=== PATIENT | female | born 1965 | race Caucasian/White ===

== ENCOUNTER 2018-10-15 17:07 | Emergency (ER) | payer SELFPAY ==
[2018-10-15 17:08] VITALS: BP 127/77; PULSE 77; RESP 16; TEMP 36.4; O2SAT 96; BMI 44.2
--- NOTE | 2018-10-15 17:25 | CT_ITS ---
STUDY: CT ABDOMEN AND PELVIS WITH CONTRAST REASON FOR EXAM: Female, 53 years old. Right lower quadrant pain RADIATION DOSAGE (If Supplied By Facility): CTDIvol = ( 22.07 ) mGy, DLP = ( 1266.40 ) mGycm TECHNIQUE: Transaxial images were obtained from the dome of the diaphragm to the symphysis pubis without oral contrast. 100ML IV/Oral Isovue 300 was administered. Sagittal and coronal images were reconstructed. Individualized dose optimization techniques were used for this CT. COMPARISON: March 24, 2014 FINDINGS: The visualized lung bases are unremarkable. The visualized portions of the heart are within normal limits. Normal liver. Normal gallbladder and extrahepatic biliary system. Normal spleen. Normal pancreas. Normal bilateral adrenal glands. Normal right kidney. 1 cm cyst in the left kidney. Normal visualized stomach. Normal small intestine. Normal colon. The appendix is not visualized. Normal abdominal aorta. Normal inferior vena cava. Normal retroperitoneum. Normal urinary bladder. There is a stable 2.6 x 2 cm ill-defined density medial to the right common iliac bifurcation, image 83 series 2. Normal abdominal wall. Normal osseous structures. CT/Abdomen/Pelvis WITH Contrast IMPRESSION: No acute pathology or significant interval changes of the abdomen and pelvis. Stable ill-defined density medial to the right common iliac bifurcation similar to the previous study. Electronically Signed: Abran Reaves DO at 20:05 EDT Tel [phone], Service support ,
--- NOTE | 2018-10-15 17:29 | ED.VIS.GEN ---
History of Present Illness Chief Complaint: Abd Pain Informant: Patient Onset: Weeks Context: Sudden Onset Timing: Continuous Quality: Pain Location: Right lower quadrant Current Severity: Mild Maximum Severity: Moderate Worsened by: Movement and palpation Relieved by: Nothing Associated Symptoms: Nausea and anorexia Narrative: Patient is a 53-year-old woman status post hysterectomy who presents with right lower quadrant pain that she localizes in the proximity McBurney's point. She has combined of nausea and anorexia. She denies fever. She denies vomiting. She has had intermittent diarrhea for 1 week. She denies vaginal discharge or vaginal bleeding. She is status post hysterectomy. Prior similar symptoms: No Recent Illness/Hospitalization: No - Past Medical History (1) No significant past medical history Status: Acute Past Medical History - Allergies and Home Meds Allergies/Adverse Reactions: Allergies No Known Allergies Allergy (Verified 10/15/18 17:10) Primary Care Physician: Eloise Zamora PA [Primary Care Provider] - Prior records reviewed: Yes Surgical History: hysterectomy, - - Ureteral reconstructive surgery Lives: Spouse/ Significant Other Smoking Status: Never smoker Alcohol: None Drugs: None Review of Systems General: Denies: Chills, Fever, Sweats Eyes: Denies: Visual changes - bilaterally, Diplopia ENT: Denies: Rhinorrhea, Sore throat Cardiovascular: Denies: Chest pain, Palpitations Respiratory: Denies: Dyspnea, Cough, Dyspnea on exertion Gastrointestinal: Reports: Abdominal pain, Nausea. Denies: Vomiting, Diarrhea, Constipation, Melena, Hematochezia Genitourinary: Denies: Dysuria, Hematuria, Frequency Musculoskeletal: Denies: Myalgias, Arthralgias, Neck pain, Back pain, Extremity Pain Skin: Denies: Rash, Wounds Neurological: Denies: Headache, Weakness, Numbness Hematologic: Denies: Easy bruising, Easy bleeding Allergy: Denies: Uticaria, Swelling of the mouth Physical Exam Vital Signs/Narrative: Vital Signs Temp Pulse Resp BP Pulse Ox 10/15/18 17:08 97.5 F L 77 16 127/77 H 96 Inital Vital Signs reviewed: Yes General: Well nourished, Well developed, No Acute Distress Head: Normocephalic, Atraumatic Eyes: Perrl, EOMI. Negative for: Pale conjunctiva, Scleral icterus, - ENT: Moist mucous membranes, No rhinorrhea, TM's clear Neck: Supple, Nontender. Negative for: No lymphadenopathy, No JVD, - Cardiovascular: Regular rate, Regular rhythm, No murmurs, Normal S1, Normal S2 Respiratory: No distress, CTA bilaterally, Chest nontender Abdomen: Soft, Nondistended, Normal bowel sounds, No masses, Tender, Guarding, Hypoactive bowel sounds. Negative for: Rebound tenderness Back: Nontender, Normal Inspection Extremities: Nontender, No edema Skin: Normal color, No rash Neurological: Alert, Oriented x3, Cranial nerves II-XII grossly intact, Normal Strength, Normal Sensation Psychological: Normal affect, Normal Mood Diagnostic/Tx/Re-eval Impressions Abdomen/Pelvis CT 10/15/18 17:25 IMPRESSION: No acute pathology or significant interval changes of the abdomen and pelvis. Stable ill-defined density medial to the right common iliac bifurcation similar to the previous study. Electronically Signed: Abran Reaves DO at 20:05 EDT Tel [phone], Service support , 10/15/18 17:25 Abdomen/Pelvis WITH Contrast [CT] Stat Laboratory Results 10/15/18 10/15/18 17:44 17:44 WBC 7.4 RBC 4.31 Hgb 13.1 Hct 39.6 MCV 91.9 MCH 30.4 MCHC 33.1 RDW Std Deviation 41.9 RDW Coeff of Todd 12.4 Plt Count 286 MPV 10.3 Immature Gran % (Auto) 0.300 Neut % (Auto) 63.6 Lymph % (Auto) 24.7 [place] % (Auto) 9.5 Eos % (Auto) 1.4 Baso % (Auto) 0.5 Absolute Neuts (auto) 4.7 Absolute Lymphs (auto) 1.82 Nucleated RBC % 0 Sodium 140 Potassium 3.8 Chloride 108 H Carbon Dioxide 27.0 Anion Gap 5 BUN 11 Creatinine 0.86 Estim Creat Clear Calc 62.58 Est GFR (MDRD) Af Amer 89 Est GFR (MDRD) Non-Af 74 BUN/Creatinine Ratio 12.9 [address] is unchanged from prior. Since her work-up reveals no acute pathology with 1 week of pain will discharge to home with home-going instructions for abdominal pain of unknown etiology - Medical Decision Making With chief complaint of right lower quadrant pain with nausea and anorexia need to evaluate for appendicitis versus mesenteric adenitis versus adhesions. CT of the abdomen with p.o. and IV contrast as well as appropriate blood work was ordered. She was medicated with Zofran and morphine. Work-up was unremarkable. Because of abdominal pain is unknown. ED Disposition - Plan for ED Patient: Disposition: Home or Assisted Living Instructions: ABDOMINAL PAIN, Unknown Cause, (Female) Prescriptions: Dicyclomine HCl [Bentyl] 20 mg PO TIDAC #10 cap Prescription Printed Referrals: Eloies Zamora PA [Primary Care Provider] - 3-5 Days if not improving
[2018-10-15] MEDS: Ondansetron 4 MG/2 ML Vial IV (17:56)
[2018-10-15] MEDS: Morphine 4 MG/ML Syringe IV ×2 (17:56→19:49)
[2018-10-15 18:02] LABS: Absolute Lymphocyte Count 1.82 X10^3/uL (0.83-4.51); Absolute Neutrophil Count 4.7 X10^3/uL (2.0-7.7); Basophil# 0.04 X10^3/uL; Basophil% 0.5 % (0-1); Eosinophils% 1.4 % (0-5); Hematocrit 39.6 % (37-47); Hemoglobin 13.1 g/dL (12.0-15.0); Lymphocyte # 1.82 X10^3/ul (4.0); Lymphocyte % 24.7 % (19-41); Mean Corp Hgb Conc 33.1 g/dL (32-36); Mean Corpuscular Hgb 30.4 pg (27.0-32.0); Mean Corpuscular Volume 91.9 fL (81-99); Mean Platelet Vol. 10.3 fl (6.2-12.0); Monocyte% 9.5 % (0-10); NRBC Flagged by Analyzer 0 % (0-5); Neutrophil # 4.69 X10^3/uL (2.7-7.7); Neutrophil % 63.6 % (47-70); Platelet Count 286 K/mm3 (150-450); RBC Distribution Width CV 12.4 % (11.6-14.6); RBC Distribution Width SD 41.9 fl (35.1-43.9); Red Blood Count 4.31 M/mm3 (4.2-5.4); White Blood Count 7.4 K/mm3 (4.4-11.0)
[2018-10-15 18:08] LABS: Anion Gap 5 (5-15); BUN 11 mg/dL (7-18); BUN/Creat Ratio 12.9 RATIO (10-20); Calcium,Total 8.9 mg/dL (8.5-10.1); Chloride 108 mmol/L (98-107); Creatinine, Serum 0.86 mg/dL (0.55-1.02); EST Glomerular Filtration Rate 74 mL/min (>60); Est Glom Filt Rate - Afr Amer 89 mL/min (>60); Estimated Creatinine Clearance 62.58 ml/min; Glucose 93 mg/dL (74-106); Potassium 3.8 mmol/L (3.5-5.1); Sodium Level 140 mmol/L (136-145)
[2018-10-15 19:48] VITALS: RESP 17
[2018-10-15 20:41] VITALS: BP 133/51; PULSE 59; RESP 18; O2SAT 95
== END 2018-10-15 20:42 | disposition home or self-care (01) ==
PROVIDERS: Emergency Provider Emergency Medicine; Family Provider Physician Assistant; PCP Physician Assistant
DX: R10.31 Right lower quadrant pain (principal); R11.0 Nausea; R63.8 Other symptoms and signs concerning food and fluid intake; R19.7 Diarrhea, unspecified; Z90.710 Acquired absence of both cervix and uterus
CPT/HCPCS: 74177; 80048; 85025; 96374; 96375; 96376; 99283; J7050; Q9967; A4216; J2405

== ENCOUNTER 2018-10-28 12:55 | Observation (INO) | payer SELFPAY ==
[2018-10-26 08:48] VITALS: BMI 46.1
[2018-10-28] VITALS (9 sets, daily range): BP systolic 99–133; BP diastolic 51–89; PULSE 61–70; RESP 16; TEMP 36.2–37.2; O2SAT 92–98; BMI 46.0
--- NOTE | 2018-10-28 10:12 | EKG12_ITS ---
Test Reason : PREOP Blood Pressure : / mmHG Vent. Rate : 065 BPM Atrial Rate : 065 BPM P-R Int : 148 ms QRS Dur : 096 ms QT Int : 406 ms P-R-T Axes : -01 -05 018 degrees QTc Int : 422 ms Normal sinus rhythm Normal ECG When compared with ECG of 25-DEC-2001 15:08, Vent. rate has decreased BY 35 BPM Confirmed by ANA HAYES, KELLY ([id number]), editor department YULIA GARCIA ([id number]) on 11/02/2018 1:38:54 PM Referred By: Edward Patel Confirmed By:KELLY PEERZ MD
--- NOTE | 2018-10-28 10:45 | PCM.HP.BLA ---
History and Physical Date of Admission: 10/28/18 Intake Vital Signs 10/26/18 Height 5 ft 3 in 10/26/18 Weight: 260 lb 9 oz 10/26/18 Body Mass Index (BMI) 46.1 10/26/18 Blood Pressure 156/90 H 10/26/18 Blood Pressure Location Rt brachial 10/26/18 Respiratory Rate 22 H 10/26/18 Pulse Rate 76 10/26/18 Pulse Ox 97 10/23/18 Body Mass Index (BMI) 44.2 Intake Visit Reasons: Dyskinetic Gallbladder [facility] US 10/20, [place] 10/22 Chief Complaint: RUQ pain Asset Protection Associate Required: No Is patient in pain?: Yes Allergies No Known Allergies Allergy (Verified 10/26/18 08:48) Medications Amlodipine [Norvasc] 10 mg PO DAILY 03/24/14 [History Confirmed 10/26/18] Multivitamins,Therapeutic [Multivitamin] 1 tab PO DAILY 03/24/14 [History Confirmed 10/26/18] Lorazepam [Ativan] 1 mg PO PRN PRN 10/15/18 [History Confirmed 10/26/18] Zolpidem Tartrate [Ambien] 5 mg PO QHS PRN 10/15/18 [History Confirmed 10/26/18] escitalopram 10 mg tablet 10 mg PO DAILY 10/26/18 [History Confirmed 10/26/18] losartan 50 mg tablet 50 mg PO DAILY 10/26/18 [History Confirmed 10/26/18] tramadol 50 mg tablet 50 mg PO Q8H PRN #20 tab 10/26/18 [Rx Confirmed 10/26/18] Is last menstrual period known: No Post menopausal: Yes Patient : No PFSH Medical History (Updated 10/26/18 @ 08:51 by Sherrill Orellana) Abdominal pain (Acute) Anxiety (Acute) Back pain (Acute) History of hysterectomy (Acute) Insomnia (Acute) Palpitations (Acute) Trigger finger (Acute) HTN (hypertension) (Chronic) Surgical History (Updated 10/26/18 @ 08:50 by Sherrill Orellana) History of appendectomy (Acute) History of colonoscopy (Acute ~2013) History of spinal surgery (Acute) History of ureter repair (Acute) Family History (Updated 10/26/18 @ 08:50 by Sherrill Orellana) Father Cancer prostate Sister Hypertension Social History (Updated 10/26/18 @ 09:47 by Edward Patel MD) Smoking Status: Never smoker HPI HPI HPI: MARC SARABIA, is a 53 F who presents to the office today for HPI HPI Surgical H&P: Yes HPI: MARC SARABIA, is a 53 F who presents to the office today for right upper quadrant pain. She said it radiates to the right lower quadrant. She reports that this is been going on for about 2-1/2 weeks and she is been having nausea as well as bloating. She says the pain is constant. ROS General General: No weight change, appetite, fatigue, colon cancer, breast cancer or weakness HEENT HEENT: No difficulty swallowing, eye injury, eye surgery, swollen glands or hoarseness Endo Endocrine: No thyroid disease, diabetes mellitus, thyroid cancer, Hair loss, heat intolerance or cold intolerance Skin Skin: No rash or changing moles Musc Musculoskeletal: No back problems, arthritis or rheumatoid arthritis Cardio Cardiovascular: Yes high blood pressure; no murmur, pacemaker, heart disease, atrial fibrillation, heart attack, heart stent, palpitations, shortness of breat with exertion or chest pain Psych Psychiatric: Yes anxiety; no depression or hearing voices Resp Respiratory: No shortness of breath, No sleep apnea, No cough, No COPD, No asthma, No emphysema, No wheezing Gastro Gastrointestinal: Yes abdominal pain, Yes nausea or vomiting, No diarrhea, No constipation, No blood in stool, No acid reflux, No hemorrhoids, No ulcers, Yes gallbladder problem, No black,tarry stools Devaughn Hematologic: No blood thinners, No blood disorders, No bleeding, No anemia, No blood clots Neuro Neurologic: No weakness Exam Const General: cooperative Orientation: alert, oriented x3 HENMT Head: normal to inspection Ears: hearing grossly normal bilaterally Eyes General: appearance normal, both eyes and all related structures Visual Elmore: normal visual elmore by confrontation Neck Neck: normal visual inspection Chest Chest palpation & inspection: normal inspection of the chest Resp Effort & Inspection: normal respiratory effort Auscultation: clear to auscultation bilaterally Cardio Rate: regular rate Rhythm: regular rhythm Heart Sounds: no murmurs GI Inspection: non-distended Palpation: soft, nontender Musc Cervical Spine: normal cervical lordosis, cervical ROM normal Skin General: no rashes or lesions noted Neuro General: alert, oriented x3 Cranial Nerves: CN's II-XI intact bilaterally Cognition: normal cognition Extrem General: normal to inspection, full ROM Psych Appearance: grossly normal Affect: normal affect Assessment & Plan Problems 1. Dyskinesia of gallbladder K82.8 Plan Patient is complaining of chronic right upper quadrant pain as well as bloating. The patient had a CT scan in the emergency room which was normal. As an outpatient the patient had ultrasound and HIDA. Ultrasound was normal and HIDA showed hyperkinesia of the gallbladder with an ejection fraction of 90%. I discussed the prognosis with the patient as well as the possibility that this is peptic ulcer disease. I offer the patient PPI and Carafate but she refused. She says that she would like her gallbladder out. With hyperkinesia of the gallbladder I did discuss that there is about a 75% chance that this would resolve her symptoms but that there was still a good 25% chance that this would not resolve her symptoms. I also discussed that if the pain did not resolve after cholecystectomy she would still need to be treated for peptic ulcer disease. She understands. I did offer her EGD before surgery which she would like to proceed with laparoscopic cholecystectomy. I discussed the procedure in detail with the patient. I discussed the risks, benefits, and alternatives of the procedure. I discussed the risks including but not limited to bleeding, infection, injury to surrounding organs such as the liver, bile duct, bowels. I did discuss the possibility of having to convert to an open procedure as well as the possibility that if any injuries occurred this may necessitate further surgery at a tertiary care center. Edward Patel MD Pager: [facility] [address] [place] [address], [address] [place] [address] Office:
--- NOTE | 2018-10-28 11:00 | GALL_PTH ---
PATIENT: MARC SARABIA LOC: MS3 U#:[id number] AGE/SX: 53/F [place] [facility] [place]: Dr. Edward Patel MD : 1965 BED: 1 DIS: 10/29/2018 SPEC #: [id number] RECD: 10/28/18 16:49 STATUS: JERRELL REPilar #: [id number] MORIS: 10/28/18 11:[address]: Edward Patel DEPT: SURGICAL PATHOLOGY RECD BY: Joaquin Roach ENTERED: 10/29/18 07:47 SP TYPE: MARY MONTES DR: MARIA LUZ Prasad Tissues: Gallbladder, NOS Procedures: Surgery Specimen Level III HEADER OPERATION: Laparoscopic cholecystectomy with IOC PRE-OP DIAGNOSIS: Dyskinesia of gallbladder K82.8 TISSUE SUBMITTED: Gallbladder MICROSCOPIC DIAGNOSIS Gallbladder, cholecystectomy: Chronic cholecystitis. No stones are identified in the container or in the gallbladder. SJ:bean 10/30/18 MICROSCOPIC DESCRIPTION Slides are reviewed. GROSS DESCRIPTION Received is one container labeled with the patient's name and designated gallbladder. The specimen consists of a gallbladder measuring 6.5 cm in length and 3 cm in diameter. The external surface is pink-franco, smooth and glistening for the most part. Focally it is granular, hemorrhagic and contains cautery artifact. The gallbladder contains a small amount of green-yellow mucoid bile. No stones are identified in the container or in the gallbladder. The mucosa is bile-stained and without any mass lesions. The gallbladder wall measures up to 0.3 cm in thickness. [employer] Supervisor sections from the gallbladder and the cystic duct are submitted in one cassette. / PEDRO PABLO:bean 10/29/18 TC:3 CPT: 32192
--- NOTE | 2018-10-28 11:28 | RAD_ITS ---
CLINICAL HISTORY: Female, 53 years old. Laparoscopic cholecystectomy PROCEDURE: CHOLANGIOGRAM - intraoperative FLUOROSCOPY TIME (if supplied): (0:13) minutes/seconds TECHNIQUE: (All elements of maximal sterile barrier technique followed, including US elements as applicable) 13 seconds of fluoroscopy of the abdomen was utilized and operating room during intraoperative Yaneth and multiple images are submitted for interpretation. FINDINGS: A cannula seen in the cystic duct remnant. Examination biliary tree demonstrates no evidence of filling defect to suggest common bile duct stone. No stricture or dilatation. Spillage of contrast into the duodenum consistent with a patent ampulla. RAD/Cholangiogram/ O R,Initial IMPRESSION: No common bile duct stone. Electronically Signed: Ady Ingram MD at 12:06 EDT Tel , Service support ,
[2018-10-28] MEDS: Bupiv/Epi 0.25% 30 ML Vial (12:24)
[2018-10-28] MEDS: Lactated Ringers 1,000 ML 100 ML IV (12:45)
[2018-10-28] MEDS: 0.9% Normal Saline 1,000 ML 100 ML IV (14:52)
--- NOTE | 2018-10-28 15:35 | OP.PCM_ITS ---
Problem List (1) Biliary dyskinesia Status: Acute Report of Operation Date of Procedure: 10/28/18 Pre-Operative Diagnosis: Biliary hyperkinesia Post-Operative Diagnosis: Same Surgery/Procedure Performed:: Laparoscopic cholecystectomy with cholangiogram Specimen's removed: Gallbladder and contents Description of Procedure: After obtaining informed consent patient was brought back to the operating room. General anesthesia was induced. The abdomen was prepped and draped in usual sterile fashion. A small midline incision was made superior to the umbilicus and deepened to the level of fascia. The fascia was elevated and incised. Next the peritoneum was elevated and incised in the same fashion. Finger sweep was performed and the Galeano trocar was placed into the abdomen. The balloon was inflated. The abdomen was inflated to 15 mmHg. Next a camera was introduced into the abdomen and the abdomen was inspected. Next under direct visualization three 5-mm ports were placed one subxiphoid and 2 subcostal. Next the gallbladder was elevated and retracted toward the right shoulder. The peritoneum was stripped from the gallbladder. The infundibulum was located and retracted laterally. Next the triangle of Calot was dissected and the cystic duct and cystic artery were identified. Cholangiograms were performed. The Gonzalez clamp was used to clamp across the infundibulum and the catheter needle was inserted into the gallbladder. Under fluoroscopy contrast was instilled into the gallbladder and the common duct, cystic duct as well as proximal h epatic ducts were identified. There was good filling of the duodenum. There were no filling defects noted in the common bile duct. The clamp was removed as well as the needle and the infundibulum was grasped once more. Three hemolock clips were placed across the cystic duct. The cystic duct was then divided leaving 2 clips on the stump. There was some spillage of bile during cholangiogram. The cystic artery was clipped and divided in the same fashion. The hook cautery was then used to take the gallbladder off of the gallbladder bed. Hemostasis was obtained. Gallbladder fossa was irrigated and no active bleeding or bile leakage was noted. Next the camera switched to a 5 mm camera and introduced in the subxiphoid port. An Endopouch bag was placed through the umbilical port and the gallbladder was placed into it. The gallbladder was then removed through the umbilical incision. The camera was then reinserted through the umbilical port. The gallbladder fossa was inspected once more and noted to be hemostatic with no leaking bile. The fluid that was left in the right upper quadrant after irrigation would not clear up despite 3 L of irrigation. Because of this I elected to leave a drain and continue to observe the patient in the hospital. A 15 Portuguese round drain was placed into the most lateral right upper quadrant port and into the gallbladder fossa. This was then sutured into place using 3-0 nylon suture. This was placed to bulb suction. The abdomen was suctioned dry. The 5 mm ports were removed under direct visualization. The umbilical port was then removed and the air was removed from the abdomen. Next using an 0 Vicryl suture the umbilical fascia was closed in a [id number] fashion. The umbilical port site was irrigated local anesthetic was admi nistered to all the incisions. All the incisions were closed with interrupted subcuticular 4-0 Monocryl sutures followed by Steri-Strips and dressings. The patient was awoken and taken to PACU in stable condition. - Admit VTE Documentation VTE Mechan Device Prophylaxis: SCD's
[2018-10-28] MEDS: Morphine 2 MG/ML Syringe IV ×3 (16:42→20:45)
[2018-10-28] MEDS: Ondansetron 4 MG/2 ML Vial IV (16:43)
[2018-10-28] MEDS: Zolpidem Tartrate 5 MG Tablet PO (21:39)
[2018-10-29] MEDS: Ondansetron 4 MG/2 ML Vial IV (00:20)
[2018-10-29] MEDS: 0.9% Normal Saline 1,000 ML 100 ML IV (00:20)
[2018-10-29] MEDS: oxyCODONE 5 MG Tablet PO ×4 (00:20→14:31)
[2018-10-29 03:53] VITALS: BP 155/87; PULSE 61; RESP 18; TEMP 37.2; O2SAT 95
[2018-10-29 04:46] VITALS: O2SAT 93
[2018-10-29 05:47] LABS: Absolute Lymphocyte Count 1.47 X10^3/uL (0.83-4.51); Absolute Neutrophil Count 4.6 X10^3/uL (2.0-7.7); Basophil# 0.04 X10^3/uL; Basophil% 0.6 % (0-1); Eosinophil# 0.09 X10^3/uL; Eosinophils% 1.3 % (0-5); Hematocrit 35.2 % (37-47); Hemoglobin 11.2 g/dL (12.0-15.0); Lymphocyte # 1.47 X10^3/ul (4.0); Lymphocyte % 21.2 % (19-41); Mean Corp Hgb Conc 31.8 g/dL (32-36); Mean Corpuscular Hgb 29.9 pg (27.0-32.0); Mean Corpuscular Volume 93.9 fL (81-99); Mean Platelet Vol. 10.5 fl (6.2-12.0); Monocyte% 10.1 % (0-10); NRBC Flagged by Analyzer 0 % (0-5); Neutrophil # 4.63 X10^3/uL (2.7-7.7); Neutrophil % 66.7 % (47-70); Platelet Count 222 K/mm3 (150-450); RBC Distribution Width SD 44.5 fl (35.1-43.9); Red Blood Count 3.75 M/mm3 (4.2-5.4); White Blood Count 6.9 K/mm3 (4.4-11.0)
[2018-10-29 06:06] LABS: AST(SGOT) 54 U/L (15-37); Alanine Aminotransfer ALT/SGPT 66 U/L (13-56); Albumin, Serum 2.9 g/dL (3.2-5.0); Alkaline Phosphatase 66 U/L (45-117); Anion Gap 8 (5-15); BUN 5 mg/dL (7-18); Calcium,Total 7.7 mg/dL (8.5-10.1); Chloride 113 mmol/L (98-107); Creatinine, Serum 0.62 mg/dL (0.55-1.02); EST Glomerular Filtration Rate 106 mL/min (>60); Est Glom Filt Rate - Afr Amer 129 mL/min (>60); Estimated Creatinine Clearance 86.81 ml/min; Globulin 2.8 g/dL (2.2-4.2); Glucose 87 mg/dL (74-106); Potassium 3.6 mmol/L (3.5-5.1); Protein, Total 5.7 g/dL (6.4-8.2); Sodium Level 146 mmol/L (136-145)
--- NOTE | 2018-10-29 07:42 | PN.SURG_ITS ---
Patient Problems: Active and Suspected Problems (Last Updated 10/26/18 @ 08:51 by Sherrill Orellana) Biliary dyskinesia (Acute) Subjective: Patient reports she is doing well with no nausea or vomiting. She is tolerating clears. Her abdominal pain is well controlled on p.o. medication. - Physical Exam General: Alert, Oriented x3 Lungs: Normal air movement Abdomen: Soft, Non Tender, Non-Distended Vital Signs Temp Pulse Resp BP Pulse Ox 99.0 F 61 18 155/87 H 93 10/29/18 03:53 10/29/18 03:53 10/29/18 03:53 10/29/18 03:53 10/29/18 04:46 Oxygen Flow Rate (L/min) 2 Oxygen Delivery Method Room Air Weight: 259 lb 11.272 oz Body Mass Index (BMI) 46.0 Intake and Output for Last 24 Hours 10/27/18 10/28/18 10/29/18 23:59 23:59 23:59 Intake Total 2245 / 2245 2153.34 / 2153.34 Output Total 40 / 40 Balance 2245 / 2245 2113.34 / 2113.34 Laboratory Tests Past 24 Hrs 10/29/18 10/29/18 05:08 05:08 WBC 6.9 RBC 3.75 L Hgb 11.2 L Hct 35.2 L MCV 93.9 MCH 29.9 MCHC 31.8 L RDW Std Deviation 44.5 H RDW Coeff of Todd 13.0 Plt Count 222 MPV 10.5 Immature Gran % (Auto) 0.100 Neut % (Auto) 66.7 Lymph % (Auto) 21.2 [place] % (Auto) 10.1 H Eos % (Auto) 1.3 Baso % (Auto) 0.6 Absolute Neuts (auto) 4.6 Absolute Lymphs (auto) 1.47 Nucleated RBC % 0 Sodium 146 H Potassium 3.6 Chloride 113 H Carbon Dioxide 25.0 Anion Gap 8 BUN 5 L Creatinine 0.62 Estim Creat Clear Calc 86.81 Est GFR (MDRD) Af Amer 129 Est GFR (MDRD) Non-Af 106 BUN/Creatinine Ratio 8.0 L Glucose 87 Calcium 7.7 L Total Bilirubin 0.40 AST 54 H ALT 66 H Alkaline Phosphatase 66 Total Protein 5.7 L Albumin 2.9 L Globulin 2.8 Albumin/Globulin Ratio 1.0 Medical Necessity - Tobacco Use Smoking Status: Never smoker Tobacco Use: Non-smoker Assessment/Plan All Active Problems (Last Updated 10/26/18 @ 08:51 by Sherrill Orellana) Biliary dyskinesia (Acute) No significant past medical history (Acute) 53-year-old female status post lap scopic cholecystectomy 1. Patient is doing well this morning. I will advance her to a regular diet. I will come back this afternoon to remove her drain and let her go home if there is tolerating a diet and the drainage has not changed consistency. Edward Patel MD Pager: [facility] [address] [place] [address], [address] [place] [address] Office:
[2018-10-29] MEDS: 0.9% NaCl Peripheral Flush Adult/Peds IV (08:10)
[2018-10-29] MEDS: Acetaminophen 325 MG Tablet 650 MG PO (08:10)
[2018-10-29] MEDS: Escitalopram Oxalate 10 MG Tablet PO (08:44)
[2018-10-29] MEDS: amLODIPine 10 MG Tablet PO (08:44)
[2018-10-29] MEDS: Losartan Potassium 50 MG Tablet PO (08:44)
[2018-10-29 08:45] VITALS: BP 143/62; PULSE 62; RESP 18; TEMP 36.8; O2SAT 92
--- NOTE | 2018-10-29 11:34 | NUR.TO.PHY ---
Patient reports she has ambulated x3 in the hallway
--- NOTE | 2018-10-29 12:50 | DCINST_ITS ---
Discharge Diet: Light diet - advance as tolerated Discharge Activity: Return to Normal Activity, May Not Drive - for 2-3 days or while taking narcotic pain medicataions., - - Do not drive, work heavy equipment or sign legal documents for 24 hours. May shower in (days): 1 - with the bandage in place. Additional Activity Instructions:: Pain medication may cause nausea. You should typically eat light foods as you take your pain medications. Pain medication may also cause constipation. If this is a problem for you, please discuss with your doctor. Call your doctor if your incision/area has: Continuous Slow Oozing, Sudden Increased Bleeding, Increased Pain/ Swelling, Increased Redness, Foul Smelling Discharge, Fever of 101 or Higher Call your doctor if you observe: Fever of 101 or Higher Suture Line Care: Avoid Pulling/Pushing, Avoid Pinching/Bending Additional Dressing/Incision Instructions:: Leave operative bandaids on for 2 days. When you remove dressing, leave Steri-Strips on until your follow-up appointment, or until the Steri-Strips fall off on their own. Allergies/Adverse Reactions: Allergies No Known Allergies Allergy (Verified 10/28/18 10:24) Medications to take at Discharge Amlodipine [Norvasc] 10 mg PO DAILY 03/24/14 Multivitamins,Therapeutic [Multivitamin] 1 tab PO DAILY 03/24/14 Lorazepam [Ativan] 1 mg PO PRN PRN 10/15/18 Zolpidem Tartrate [Ambien] 5 mg PO QHS PRN 10/15/18 escitalopram 10 mg tablet 10 mg PO DAILY 10/26/18 losartan 50 mg tablet 50 mg PO DAILY 10/26/18 tramadol 50 mg tablet 50 mg PO Q8H PRN #20 tab 10/26/18 Oxycodone [Oxyir] 5 - 10 mg PO Q4H PRN PRN 7 Days #30 tab 10/29/18 The following prescriptions were given: Oxycodone [Oxyir] 5 - 10 mg PO Q4H PRN PRN 7 Days #30 tab PRN Reason: Severe Pain (6-10) Transmission Status: Sent to [facility] Primary Care Physician: Eloise Zamora PA [Primary Care Provider] - Test Results: Test results from this visit will be discussed in further detail at your follow- up appointment, if applicable. Please Follow Up With: Edward Patel MD When: Please call to schedule 2 week follow up appointment. [phone]
[2018-10-29 14:39] VITALS: BP 150/75; PULSE 79; RESP 18; TEMP 36.9; O2SAT 93
== END 2018-10-29 15:00 | disposition home or self-care (01) ==
LOC: SDC 15:23 → MS3 15:23
PROVIDERS: Admitting Provider Surgery; Family Provider Physician Assistant; PCP Physician Assistant; Referring Provider Surgery; Visit Provider Surgery
PROC: (CPT 47610; principal; 2018-10-28 10:45)
DX: K81.1 Chronic cholecystitis (principal); I10 Essential (primary) hypertension; Z79.899 Other long term (current) drug therapy; F32.9 Major depressive disorder, single episode, unspecified; F41.9 Anxiety disorder, unspecified
CPT/HCPCS: 47563; 36415; 74300; 76000; 80053; 85025; 88304; 93005; 94762; 96361; 96365; 96375; 96376; 99218; J7030; J7120; A4216; G0378; J2405

== ENCOUNTER 2018-12-25 08:32 | Day surgery (SDC) | payer SELFPAY ==
[2018-10-28 10:26] VITALS: BMI 46.0
[2018-12-25] VITALS (8 sets, daily range): BP systolic 88–115; BP diastolic 46–63; PULSE 53–61; RESP 14–16; TEMP 36.3–36.7; O2SAT 95–97; BMI 44.9
[2018-12-25] MEDS: Lactated Ringers 1,000 ML 100 ML IV (09:13)
--- NOTE | 2018-12-25 09:30 | IMM_PTH ---
PATIENT: MARC SARABIA LOC: EN U#:[id number] AGE/SX: 53/F ROOM: RE12/25/[address]: Dr. Edward Patle MD : 1965 BED: DIS: 12/25/2018 SPEC #: [id number] RECD: 12/25/18 13:27 STATUS: JERRELL REPilar #: [id number] MORIS: 12/25/18 09:[address]: Edward Patel DEPT: IMMUNOHISTOCHEMISTRY RECD BY: Danae Moreno ENTERED: 12/25/18 13:28 SP TYPE: IMMUNO OTHR DR: MARIA LUZ Prasad Tissues: Stomach, NOS Procedures: H Pylori (initial) PHYSICIAN & INSTITUTION [place] [id number] SPECIMEN INFORMATION: Tissue Source: Antral biopsy Clinical Info: Abdominal pain Specimen Number: [id number] CPT code: 82053 METHODOLOGY: Deparaffinized sections of prefer/formalin-fixed tissue or PAP/DQ stained slides are incubated with monoclonal/polyclonal antibodies/oligonucleotide probes. Localization is made via biotin free immunoperoxidase method. Appropriate controls are performed and reacted as expected. Results on target cell population are indicated in the following table: RESULTS: ANTIBODY / CLONE RESULT H Pylori (polyclonal) negative These tests were developed and their performance characteristics determined by [facility]. They may not have been cleared or approved by the U.S. Food and Drug Administration. The FDA has determined that such clearance or approval is not necessary. INTERPRETATION: Antral biopsy: Negative for Helicobacter pylori organisms. PEDRO PABLO:bean 12/28/18
--- NOTE | 2018-12-25 09:30 | EGD_PTH ---
PATIENT: MARC SARABIA LOC: EN U#:[id number] AGE/SX: 53/F ROOM: RE12/25/[address]: Dr. Edward Patel MD : 1965 BED: DIS: 12/25/2018 SPEC #: [id number] RECD: 12/25/18 10:25 STATUS: JERRELL KORIN #: [id number] MORIS: 12/25/18 09:[address]: Edward Patel DEPT: SURGICAL PATHOLOGY RECD BY: Joaquin Roach ENTERED: 12/25/18 12:22 SP TYPE: EGD BIOPSY OTHR DR: MARIA LUZ Prasad Tissues: Gastric mucous membrane Procedures: Surgery Specimen Level IV HEADER OPERATION: [place] [place] DIAGNOSIS: Abdominal pain TISSUE SUBMITTED: Antral biopsy for H. pylori and pathology MICROSCOPIC DIAGNOSIS Antral biopsy: Mild to moderate gastritis. See microscopic description and comment. SJ:bean 10/21/19 COMMENT The results of immunohistochemistry for Helicobacter pylori will be reported separately ([id number]). MICROSCOPIC DESCRIPTION Slides are reviewed. The specimen shows fragments of gastric mucosa with chronic inflammatory cell infiltrates in the lamina propria consisting of lymphocytes and plasma cells, consistent with mild to moderate chronic gastritis. GROSS DESCRIPTION Received in fixative is one container labeled with the patient's name and designated antral biopsy. The specimen consists of two irregular fragments of light franco soft tissue that in aggregate measure 0.5 x 0.4 x 0.1 cm. The specimen is totally submitted in one cassette. / SJ:rg 12/25/18 TC:3 CPT: 20490
--- NOTE | 2018-12-25 09:36 | HP.PCM_ITS ---
Problem List (1) RUQ abdominal pain Status: Acute History and Physical Date of Admission: 12/25/18 Intake Vital Signs 12/24/18 Body Mass Index (BMI) 46.0 Intake Visit Reasons: Prev lap slava/still having nauseau abd pain Chief Complaint: nausea post slava Allergies No Known Allergies Allergy (Verified 12/24/18 15:04) Medications Amlodipine [Norvasc] 10 mg PO DAILY 03/24/14 [History Confirmed 12/24/18] Multivitamins,Therapeutic [Multivitamin] 1 tab PO DAILY 03/24/14 [History Confirmed 12/24/18] Lorazepam [Ativan] 1 mg PO PRN PRN 10/15/18 [History Confirmed 12/24/18] Zolpidem Tartrate [Ambien] 5 mg PO QHS PRN 10/15/18 [History Confirmed 12/24/18] escitalopram 10 mg tablet 10 mg PO DAILY 10/26/18 [History Confirmed 12/24/18] losartan 50 mg tablet 50 mg PO DAILY 10/26/18 [History Confirmed 12/24/18] tramadol 50 mg tablet 50 mg PO Q8H PRN #20 tab 10/26/18 [Rx Confirmed 12/24/18] omeprazole 20 mg tablet,delayed release 20 mg PO DAILY #60 tab 11/10/18 [Rx C onfirmed 12/24/18] promethazine 12.5 mg tablet 12.5 mg PO TID PRN #20 tab 11/10/18 [Rx Confirmed 12/24/18] sucralfate 1 gram tablet 1 g PO QACHS #120 tab 12/24/18 [Rx Confirmed 12/24/18] [facility] Medical History (Updated 10/28/18 @ 15:37 by Edward Patel MD) Abdominal pain (Acute) Anxiety (Acute) Back pain (Acute) History of hysterectomy (Acute) Insomnia (Acute) Palpitations (Acute) Trigger finger (Acute) HTN (hypertension) (Chronic) Surgical History (Updated 11/05/18 @ 12:31 by Sherrill Orellana) History of appendectomy (Acute) History of colonoscopy (Acute ~2013) History of laparoscopic cholecystectomy (Acute ~10/2018) History of spinal surgery (Acute) History of ureter repair (Acute) Family History (Updated 10/26/18 @ 08:50 by Sherrill Orellana) Father Cancer prostate Sister Hypertension Social History (Updated 12/24/18 @ 15:32 by Edward Patel MD) Smoking Status: Never smoker HPI HPI HPI: MARC SARABIA, is a 53 F who presents to the office today for HPI HPI HPI: MARC SARABIA, is a 53 F who presents to the office today for Right upper quadrant pain and nausea and vomiting. Patient had previously presented to me with biliary dyskinesia and was convinced that the right upper quadrant pain was caused by her gallbladder. She underwent laparoscopic cholecystomy with nausea and vomiting and right upper quadrant pain did not resolve. The patient still complaining of nausea vomiting and right upper quadrant pain despite Nexium. ROS General General: No weight change or fatigue Cardio Cardiovascular: No murmur, pacemaker, heart disease, atrial fibrillation, high blood pressure, heart attack, heart stent, palpitations, shortness of breat with exertion or chest pain Psych Psychiatric: No depression or anxiety Resp Respiratory: No shortness of breath, No sleep apnea, No cough, No COPD, No asthma, No emphysema, No wheezing Gastro Gastrointestinal: Yes abdominal pain, Yes nausea or vomiting, No diarrhea, No constipation, No blood in stool, Yes acid reflux, No hemorrhoids, No ulcers, No gallbladder problem, No black,tarry stools Devaughn Hematologic: No blood thinners Exam Const General: cooperative Orientation: alert, oriented x3 Resp Effort & Inspection: normal respiratory effort Auscultation: clear to auscultation bilaterally Cardio Rate: regular rate Rhythm: regular rhythm Heart Sounds: no murmurs GI Inspection: non-distended Palpation: soft, nontender Assessment & Plan Problems 1. RUQ pain R10.11 2. Nausea and vomiting, intractability of vomiting not specified, unspecified vomiting type R11.2 Plan The patient is complaining of right upper quadrant pain and nausea and vomiting. She has been on Nexium. She has had her gallbladder out for biliary dyskinesia but the pain did not resolve. I offer the patient EGD to rule out gastritis and peptic ulcer disease. I explained endoscopy in detail to the patient. I explained the risks including but not limited to stroke or heart attack with anesthesia, perforation of the GI tract, bleeding, infection. I explained that any of these could necessitate further emergency surgery. The patient understands and all questions were answered sufficiently. The patient wishes to proceed with procedure. Edward Patel MD Pager: [facility] [address] [place] [address], [facility] [address] [place] [address] Office:
--- NOTE | 2018-12-25 09:57 | OP.ENDO_ITS ---
12/25/2018 Eloise Zamora Re : Upper GI endoscopy procedure for Adeline West Deadave Zamora This procedure was performed on Tuesday, December 25, 2018. My impressions and recommendations are as follows: Impressions : - Normal examined duodenum. - Normal esophagus. - Biopsies were taken with a cold forceps for Helicobacter pylori testing. - Bile gastritis. Recommendations : - Discharge patient to home. - Resume previous diet. - Continue present medications. - Await pathology results. My findings are described in the full procedure note, which is enclosed. If I can be of further assistance, please feel free to contact me at Doctor phone number(s): , Work: . Sincerely, Edward Patel MD 12/25/2018 9:56:59 AM This report has been signed electronically.
== END 2018-12-25 10:47 | disposition home or self-care (01) ==
LOC: EN 08:36 → AC 08:36
PROVIDERS: Family Provider Physician Assistant; PCP Physician Assistant; Referring Provider Physician Assistant; Visit Provider Surgery
PROC: 0DJ08ZZ Inspection of Upper Intestinal Tract, Via Natural or Artificial Opening Endoscopic (ICD-10-PCS; CPT 43235; principal; 2018-12-25 09:25)
DX: K29.60 Other gastritis without bleeding (principal); F41.9 Anxiety disorder, unspecified; I10 Essential (primary) hypertension; K21.9 Gastro-esophageal reflux disease without esophagitis; Z90.49 Acquired absence of other specified parts of digestive tract; Z79.899 Other long term (current) drug therapy
CPT/HCPCS: 43239; 88305; 88342; J7120; J2405

== ENCOUNTER → 2019-01-22 14:16 | Outpatient (CLI) | payer SELFPAY ==
[2018-12-25 08:59] VITALS: BMI 44.9
[2019-01-22 15:59] LABS: Hematocrit 41.8 % (37-47); Hemoglobin 13.2 g/dL (12.0-15.0); Mean Corp Hgb Conc 31.6 g/dL (32-36); Mean Corpuscular Hgb 28.9 pg (27.0-32.0); Mean Corpuscular Volume 91.5 fL (81-99); Mean Platelet Vol. 10.2 fl (6.2-12.0); Platelet Count 344 K/mm3 (150-450); RBC Distribution Width CV 13.1 % (11.6-14.6); RBC Distribution Width SD 43.9 fl (35.1-43.9); Red Blood Count 4.57 M/mm3 (4.2-5.4); White Blood Count 9.9 K/mm3 (4.4-11.0)
[2019-01-22 16:11] LABS: AST(SGOT) 25 U/L (15-37); Alanine Aminotransfer ALT/SGPT 39 U/L (13-56); Albumin, Serum 3.5 g/dL (3.2-5.0); Alkaline Phosphatase 94 U/L (45-117); Bilirubin, Direct 0.07 mg/dL (0.00-0.30); Globulin 3.9 g/dL (2.2-4.2); Lipase 145 U/L (73-393); Protein, Total 7.4 g/dL (6.4-8.2)
== END ==
PROVIDERS: Family Provider Physician Assistant; PCP Physician Assistant; Referring Provider Internal Medicine Gastroenterology; Visit Provider Internal Medicine Gastroenterology
DX: R11.0 Nausea (principal); R10.9 Unspecified abdominal pain
CPT/HCPCS: 36415; 80076; 83690; 85027

== ENCOUNTER 2023-01-24 09:34 | Inpatient (IN) | payer SELFPAY ==
[2023-01-24 09:35] VITALS: BP 164/75; PULSE 89; RESP 16; TEMP 36.8; O2SAT 97; BMI 43.4
--- NOTE | 2023-01-24 09:47 | EKG12_ITS ---
Test Reason : SUBSTANCE ABUSE Blood Pressure : / mmHG Vent. Rate : 086 BPM Atrial Rate : 086 BPM P-R Int : 158 ms QRS Dur : 100 ms QT Int : 370 ms P-R-T Axes : 028 -18 009 degrees QTc Int : 442 ms Normal sinus rhythm Moderate voltage criteria for LVH, may be normal variant ( R in aVL , Kostas product ) Nonspecific ST abnormality Abnormal ECG Confirmed by ANA HAYES, KELLY ([id number]), pictures editor KATHERIN DAINELS ([id number]) on 01/29/2023 12:20:43 PM Referred By: KERVIN Confirmed By:KELLY PEREZ MD
--- NOTE | 2023-01-24 09:47 | EX.ED.SAOD ---
HPI History of Present Illness Chief Complaint: Substance Abuse Narrative Narrative: 57-year-old female past medical history of hypertension presents with her for detox from alcohol. She states that she can go for months without drinking but over the last few days has been drinking more. Her states is actually been last few weeks that she has been drinking on a daily basis. She states she usually drinks gin and vodka, at least 750 mL a day. Her last drink was at around 5 AM this morning, approximately 4 to 5 hours ago. She has never been through rehab or detox. She denies any suicidal ideation. No physical symptoms such as chest pain or shortness of breath, no shakiness. [facility] Medical History Abdominal pain Anxiety Back pain HTN (hypertension) Insomnia Palpitations Trigger finger Home Medications amlodipine 10 mg tablet 10 mg PO DAILY 03/24/14 [History Last Taken 01/22/23] multivitamin with folic acid 400 mcg tablet 1 tab PO DAILY 03/24/14 [History Last Taken Unknown] lorazepam 1 mg tablet 1 mg PO TID PRN Anxiety 10/15/18 [History Last Taken 01/22/23] duloxetine 30 mg capsule,delayed release 30 mg PO DAILY 03/14/21 [History Last Taken 01/22/23] trazodone 100 mg tablet 100 mg PO QHS 01/24/23 [History Last Taken 01/22/23] Allergy/AdvReac Type Severity Reaction Status Date / Time No Known Allergies Allergy Verified 01/24/23 09:47 Family History Father Cancer prostate Sister Hypertension Mother Lewy body dementia Surgical History History of appendectomy History of colonoscopy (~2013) History of hysterectomy History of laparoscopic cholecystectomy (~10/2018) History of spinal surgery History of ureter repair Social History Smoking Status: Never smoker ROS ROS ED ROS Narrative Constitutional: No fever, no chills. HEENT: No sore throat. No neck pain. No loss of vision. No rhinorrhea. Cardiovascular: No chest pain. No palpitations. No pedal edema. Respiratory: No cough, no shortness of breath. Abdominal: No abdominal pain. No nausea. No vomiting. Genitourinary: No dysuria. No hematuria. Musculoskeletal: No myalgias. No arthralgias. Neurologic: No headaches. No dizziness. No lightheadedness. Skin: No rash. No change in color. Psychiatric: No depression. No anxiety. No suicidal ideation. EXAM Physical Exam Narrative Exam Narrative: Afebrile. Vital signs noted. HEENT: Normocephalic. Atraumatic. PERRL, EOMI. Neck soft and supple. No point tenderness or step off. Cardiovascular: Regular rate and rhythm. No murmurs, rubs, or gallops appreciated. Respiratory: No tachypnea. Lungs clear to auscultation bilaterally. Gastrointestinal: Abdomen soft, nontender, with normoactive bowel sounds. No rebound or guarding. Neurological: Awake. Alert. Nonfocal, nonlateralizing. Appears intoxicated. Skin: No rash. Normal color. No pallor. Musculoskeletal: No pedal edema. Full range of motion extremities. Const Vital Signs: 01/24/23 09:35 Temperature 98.3 F Temperature Source Temporal Pulse Rate 89 Respiratory Rate 16 Blood Pressure 164/75 H Blood Pressure Mean 104 Pulse Ox 97 Oxygen Delivery Method Room Air MDM MDM MDM Narrative Medical decision making narrative: Medical screening labs were obtained. Currently, patient is agreeable to be admitted for detox from alcohol. She and her states that her stressors are from health one of her sons, who is currently hospitalized. EKG was obtained and interpreted by myself independently as normal sinus rhythm at 86 bpm without ectopy or acute ST changes. No STEMI. I reviewed her available laboratory work currently and she has a leukocytosis of 15.2 which I think is nonspecific, hemoglobin normal at 14.2, platelet count normal at 391. Her alcohol and CMP are currently pending. Urine for drugs of abuse is negative. However, I do not feel that this precludes her from speaking with the hospitalist regarding her inpatient detoxification. I did review her CMP and she has elevated AST of 143 and ALT of 68 with alk phos of 119 which I think is elevated secondary to her alcohol use. Her LFTs have been elevated in the past. Ethyl alcohol is elevated at 141. At this point in time, patient was discussed with Dr. Soto for admission for detox from alcohol. Currently, patient is in stable condition. History & Record Review Discussion w/independent historian: Patient Additional record(s) reviewed:: Prior ED visit and Prior labs Lab Data Attestation: I reviewed the patient's lab results. Labs: Laboratory Results - last 24 hr 01/24/23 01/24/23 09:57 10:07 WBC 15.2 H RBC 4.98 Hgb 14.2 Hct 44.2 MCV 88.8 MCH 28.5 MCHC 32.1 RDW Std Deviation 44.3 H RDW Coeff of Todd 13.8 Plt Count 391 MPV 9.4 Immature Gran % (Auto) 0.400 Neut % (Auto) 78.0 H Lymph % (Auto) 13.6 L Moffat % (Auto) 7.5 Eos % (Auto) 0.1 Baso % (Auto) 0.4 Absolute Neuts (auto) 11.8 H Absolute Lymphs (auto) 2.06 Nucleated RBC % 0 Sodium 141 Potassium 3.6 Chloride 105 Carbon Dioxide 25.0 Anion Gap 11 BUN 7 Creatinine 0.70 Estim Creat Clear Calc 73.35 Est GFR (MDRD) Af Amer 111 Est GFR (MDRD) Non-Af 92 BUN/Creatinine Ratio 10.0 Glucose 107 H Calcium 9.0 Total Bilirubin 0.30 AST 143 H ALT 68 H Alkaline Phosphatase 119 H Total Protein 7.8 Albumin 3.8 Globulin 4.0 Albumin/Globulin Ratio 1.0 Urine Opiates Screen NEGATIVE Urine Methadone Screen NEGATIVE Ur Barbiturates Screen NEGATIVE Ur Phencyclidine Scrn NEGATIVE Ur Amphetamines Screen NEGATIVE MDMA (Ecstasy) Screen NEGATIVE U Benzodiazepines Scrn NEGATIVE Urine Cocaine Screen NEGATIVE U Cannabinoids Screen NEGATIVE Ur Drug Screen Comment Ethyl Alcohol 141.0 Differential Diagnosis Differential Diagnosis: Not applicable Management Discussion w/another healthcare provider: Hospitalist (Dr. Eugene Soto) Discharge Plan Dx/Rx/DC Orders Clinical Impression: Desire for detoxification, Alcohol abuse, Leukocytosis Disposition Disposition: Acute Care Hospital [facility]
[2023-01-24 10:19] LABS: Absolute Lymphocyte Count 2.06 X10^3/uL (0.83-4.51); Absolute Neutrophil Count 11.8 X10^3/uL (2.0-7.7); Basophil# 0.06 X10^3/uL; Basophil% 0.4 % (0-1); Eosinophil# 0.02 X10^3/uL; Eosinophils% 0.1 % (0-5); Hematocrit 44.2 % (37-47); Hemoglobin 14.2 g/dL (12.0-15.0); Lymphocyte # 2.06 X10^3/ul (0.83-4.51); Lymphocyte % 13.6 % (19-41); Mean Corp Hgb Conc 32.1 g/dL (32-36); Mean Corpuscular Hgb 28.5 pg (27.0-32.0); Mean Corpuscular Volume 88.8 fL (81-99); Mean Platelet Vol. 9.4 fl (6.2-12.0); Monocyte# 1.14 X10^3/uL; Monocyte% 7.5 % (0-10); NRBC Flagged by Analyzer 0 % (0-5); Neutrophil # 11.84 X10^3/uL (2.7-7.7); Platelet Count 391 K/mm3 (150-450); RBC Distribution Width CV 13.8 % (11.6-14.6); RBC Distribution Width SD 44.3 fl (35.1-43.9); Red Blood Count 4.98 M/mm3 (4.2-5.4); White Blood Count 15.2 K/mm3 (4.4-11.0)
[2023-01-24 10:26] LABS: Amphetamine Urine VISTA NEGATIVE (<1000 ng/mL); Barbiturate Urine VISTA NEGATIVE (< 200 ng/mL); Benzodiazepine Urine VISTA NEGATIVE (< 200 ng/mL); Cocaine Urine VISTA NEGATIVE (< 300 ng/mL); Ecstacy Urine VISTA NEGATIVE (< 500 ng/mL); Methadone Urine VISTA NEGATIVE (< 300 ng/mL); PCP Urine VISTA NEGATIVE (< 25 ng/mL); THC Urine VISTA NEGATIVE (< 50 ng/mL); Vista UDS pH Range 5
[2023-01-24 10:37] LABS: AST(SGOT) 143 U/L (15-37); Alanine Aminotransfer ALT/SGPT 68 U/L (13-56); Albumin, Serum 3.8 g/dL (3.2-5.0); Alkaline Phosphatase 119 U/L (45-117); Anion Gap 11 (5-15); BUN 7 mg/dL (7-18); Chloride 105 mmol/L (98-107); EST Glomerular Filtration Rate 92 mL/min (>60); Est Glom Filt Rate - Afr Amer 111 mL/min (>60); Estimated Creatinine Clearance 73.35 ml/min; Glucose 107 mg/dL (74-106); Potassium 3.6 mmol/L (3.5-5.1); Protein, Total 7.8 g/dL (6.4-8.2); Sodium Level 141 mmol/L (136-145)
--- NOTE | 2023-01-24 10:40 | NURSING ---
MED SURG JOPPERI ALCOHOL DETOX
[2023-01-24 11:39] VITALS: BP 196/96; PULSE 92; RESP 18; TEMP 37.1; O2SAT 98
[2023-01-24 11:42] VITALS: BMI 43.9
--- NOTE | 2023-01-24 11:49 | ADDICTION ---
This communications writer met with PT to conduct ASAM, MSE, AUDIT assessments and to plan for d/c. PT A+Ox4 and participated actively. All assessments completed and placed in PT's chart. PT [facility] treatment services. PT did not indicate a need for transportation post d/c from [facility].
[2023-01-24] MEDS: LORazepam 1 MG Tablet PO ×2 (11:57→18:29)
[2023-01-24] MEDS: amLODIPine 10 MG Tablet PO (11:57)
[2023-01-24] MEDS: Gabapentin 300 MG Capsule PO (11:57)
[2023-01-24] MEDS: Phenobarbital 32.4 MG Tablet 64.8 MG PO ×4 (11:57→23:55)
--- NOTE | 2023-01-24 12:10 | PCM.HP.STD ---
HPI - General General Date of Admission: 01/24/23 Date of Service: 01/24/23 Chief Complaint: Requesting treatment for alcohol withdrawal HPI Narrative MARC SARABIA, is a 57 F who presents reluctantly seeking treatment for alcohol withdrawal. Patient was brought here by her as patient has been consuming copious amounts of alcohol over the past week. Patient has issues with anxiety that may be stemming from the severe illness that her son is currently experiencing and so she has been on chronic lorazepam and recently ran out about a week ago. Patient was prescribed #60 of lorazepam on January 02. Supposed be a 30-day supply but she exhausted it within roughly 2 weeks of receiving it. Patient has also been supplementing that with alcohol. Patient has had his has a history of severe alcohol abuse and had been sober for period of time but has recently resumed drinking heavily. Patient's last drink was around 5 AM. When I walked into the room, patient was focused on but all details such as my name, looking my badge, and wondering what the issue teleneurology camera that was spying on her, it asking about drinking water and wonder what her alcohol level is. [facility] Medical History Abdominal pain Alcohol abuse Anxiety Back pain HTN (hypertension) Insomnia Palpitations Trigger finger Home Medications amlodipine 10 mg tablet 10 mg PO DAILY 03/24/14 [History Last Taken 01/22/23] multivitamin with folic acid 400 mcg tablet 1 tab PO DAILY 03/24/14 [History Last Taken Unknown] lorazepam 1 mg tablet 1 mg PO TID PRN Anxiety 10/15/18 [History Last Taken 01/22/23] duloxetine 30 mg capsule,delayed release 30 mg PO DAILY 03/14/21 [History Last Taken 01/22/23] trazodone 100 mg tablet 100 mg PO QHS 01/24/23 [History Last Taken 01/22/23] Allergy/AdvReac Type Severity Reaction Status Date / Time No Known Allergies Allergy Verified 01/24/23 09:47 Family History Father Cancer prostate Sister Hypertension Mother Lewy body dementia Surgical History History of appendectomy History of colonoscopy (~2013) History of hysterectomy History of laparoscopic cholecystectomy (~10/2018) History of spinal surgery History of ureter repair Social History Smoking Status: Never smoker ROS ROS Narrative Anxiety. All review of systems other clayton negative except as mentioned above and in the HPI. Vital Signs Vital Signs Vital Signs: 01/24/23 09:35 01/24/23 11:39 Temperature 36.8 C 37.1 C Temperature Source Temporal Oral Pulse Rate 89 92 Respiratory Rate 16 18 Blood Pressure 164/75 H 196/96 H Blood Pressure Mean 104 129 Blood Pressure Source Monitor Blood Pressure Position Semi-Fowlers Blood Pressure Location Right Arm Pulse Ox 97 98 Oxygen Delivery Method Room Air Room Air Weight Weight: 112.4 kg Body Mass Index (BMI) 43.9 Physical Exam Const alert Constitutional Narrative: Extremely anxious. Keeps perseverating on but all details in her room. Appears overwhelmed and does not get tearful at the point when she starts talking about her son. HEENT normocephalic and head/scalp atraumatic Resp normal respiratory effort Neuro Sensorium / Orientation: awake and alert Psych Mood & Affect: anxious Results Lab / Micro Data 01/24/23 10:07 01/24/23 10:07 Labs: Laboratory Results - last 24 hr 01/24/23 09:57: Urine Opiates Screen NEGATIVE, Urine Methadone Screen NEGATIVE, Ur Barbiturates Screen NEGATIVE, Ur Phencyclidine Scrn NEGATIVE, Ur Amphetamines Screen NEGATIVE, MDMA (Ecstasy) Screen NEGATIVE, U Benzodiazepines Scrn NEGATIVE, Urine Cocaine Screen NEGATIVE, U Cannabinoids Screen NEGATIVE, Ur Drug Screen Comment 01/24/23 10:07: WBC 15.2 H, RBC 4.98, Hgb 14.2, Hct 44.2, MCV 88.8, MCH 28.5, MCHC 32.1, RDW Std Deviation 44.3 H, RDW Coeff of Todd 13.8, Plt Count 391, MPV 9.4, Immature Gran % (Auto) 0.400, Neut % (Auto) 78.0 H, Lymph % (Auto) 13.6 L, Johnson % (Auto) 7.5, Eos % (Auto) 0.1, Baso % (Auto) 0.4, Absolute Neuts (auto) 11.8 H, Absolute Lymphs (auto) 2.06, Nucleated RBC % 0, Sodium 141, Potassium 3.6, Chloride 105, Carbon Dioxide 25.0, Anion Gap 11, BUN 7, Creatinine 0.70, Estim Creat Clear Calc 73.35, Est GFR (MDRD) Af Amer 111, Est GFR (MDRD) Non-Af 92, BUN/Creatinine Ratio 10.0, Glucose 107 H, Calcium 9.0, Total Bilirubin 0.30, AST 143 H, ALT 68 H, Alkaline Phosphatase 119 H, Total Protein 7.8, Albumin 3.8, Globulin 4.0, Albumin/Globulin Ratio 1.0, Ethyl Alcohol 141.0 Assessment & Plan Assessment/Plan (1) Alcohol abuse: PLAN: Patient abusing alcohol is what seems like a coping mechanism for her severe anxiety. Patient will have phenobarbital taper available as well as supplemental medications to help her with her somatic complaints with her withdrawal. Patient has not followed up with anyone in particular in regards to withdrawal in the past though she has been sober previously. Will have addiction medicine to see and provide additional resources for her. With the patient and her 's permission, who was in the room while she was in the emergency room, I asked her permission to speak frankly with him both. They gram that permission I told him frankly that I had significant concerns about the patient actually following through and buying into the program. Expressed to them both that this is simply not going to work if she does not buy into wanting to get help and following up to continue with that help. Did second her 's recommendation that she stay here to get sober so that she can leave a more functional life. Her demeanor seem to have changed after that where she became less distracted on the minutia of her room and more in regards to focusing on her recovery. I also reemphasized that she is can to be cured without visitors and her belongings will be locked up. She is at this time, agreeable. PLAN: Plan Anxiety: Chronic. Patient is on duloxetine as well as lorazepam. Patient had 30-day supply written on 02 January. Patient ran out of it a week ago. So the patient burned through a's 30-day supply in about 2 weeks. Patient is misusing lorazepam. Patient does have chronic opiate dependence though she has been off of her week. We will have that available as needed. I do feel that the lorazepam is a poor long-term choice in regards to treating her anxiety. Patient states that she is never seen psychiatry nor counseling. I think she would tremendously benefit from having outpatient follow-up with psychiatry. Hypertension: Continue with amlodipine. VTE prophylaxis: Low risk. Monitor. Charges/Coding Visit Charges Inpatient E&M: 52763 Init Hosp L2
[2023-01-24] MEDS: hydrOXYzine PAM 25 MG Capsule 50 MG PO ×3 (14:39→22:26)
[2023-01-24 15:33] VITALS: BP 141/71; PULSE 110; RESP 16; TEMP 37.4; O2SAT 98
[2023-01-24] MEDS: Ibuprofen 600 MG Tablet PO (15:47)
[2023-01-24] MEDS: traZODone 100 MG Tablet PO (19:53)
[2023-01-24 19:54] VITALS: BP 147/70; PULSE 95; RESP 16; TEMP 37; O2SAT 98
[2023-01-24] MEDS: MELATONIN 10 MG TABLET PO (22:26)
[2023-01-24 23:54] VITALS: BP 158/84; PULSE 85; RESP 16; TEMP 36.6; O2SAT 95
[2023-01-25] VITALS (7 sets, daily range): BP systolic 116–167; BP diastolic 61–86; PULSE 79–110; RESP 12–16; TEMP 36.7–36.9; O2SAT 94–98
[2023-01-25] MEDS: Phenobarbital 32.4 MG Tablet 64.8 MG PO ×5 (03:54→19:37)
--- NOTE | 2023-01-25 07:59 | PCM.PN.HOSP ---
Reason for Visit Reason for Visit: Diagnoses Alcohol abuse, uncomplicated (01/24/23) Subjective Subjective Feeling better today, but still anxious. Objective Data Objective Data Vital Signs: Vital Signs Temp Pulse Resp BP Pulse Ox O2 Del Method 36.8 C 84 16 146/86 H 98 Room Air 01/25/23 04:00 01/25/23 04:00 01/25/23 04:00 01/25/23 04:00 01/25/23 04:00 01/25/23 04:00 Oxygen Delivery Method Room Air Weight: 112.4 kg Body Mass Index (BMI) 43.9 Lab / Micro Data 01/24/23 10:07 01/24/23 10:07 Labs: Laboratory Results - last 24 hr 01/24/23 09:57: Urine Opiates Screen NEGATIVE, Urine Methadone Screen NEGATIVE, Ur Barbiturates Screen NEGATIVE, Ur Phencyclidine Scrn NEGATIVE, Ur Amphetamines Screen NEGATIVE, MDMA (Ecstasy) Screen NEGATIVE, U Benzodiazepines Scrn NEGATIVE, Urine Cocaine Screen NEGATIVE, U Cannabinoids Screen NEGATIVE, Ur Drug Screen Comment 01/24/23 10:07: WBC 15.2 H, RBC 4.98, Hgb 14.2, Hct 44.2, MCV 88.8, MCH 28.5, MCHC 32.1, RDW Std Deviation 44.3 H, RDW Coeff of Todd 13.8, Plt Count 391, MPV 9.4, Immature Gran % (Auto) 0.400, Neut % (Auto) 78.0 H, Lymph % (Auto) 13.6 L, Trego % (Auto) 7.5, Eos % (Auto) 0.1, Baso % (Auto) 0.4, Absolute Neuts (auto) 11.8 H, Absolute Lymphs (auto) 2.06, Nucleated RBC % 0, Sodium 141, Potassium 3.6, Chloride 105, Carbon Dioxide 25.0, Anion Gap 11, BUN 7, Creatinine 0.70, Estim Creat Clear Calc 73.35, Est GFR (MDRD) Af Amer 111, Est GFR (MDRD) Non-Af 92, BUN/Creatinine Ratio 10.0, Glucose 107 H, Calcium 9.0, Total Bilirubin 0.30, AST 143 H, ALT 68 H, Alkaline Phosphatase 119 H, Total Protein 7.8, Albumin 3.8, Globulin 4.0, Albumin/Globulin Ratio 1.0, Ethyl Alcohol 141.0 Physical Exam Const alert and no apparent distress Constitutional Narrative: more calm today. HEENT head/scalp atraumatic Extremity normal to inspection Neuro moves all extremities and no focal motor deficits Sensorium / Orientation: awake and alert Assessment & Plan Assessment/Plan (1) Alcohol abuse: PLAN: Patient abusing alcohol is what seems like a coping mechanism for her severe anxiety. Patient will have phenobarbital taper available as well as supplemental medications to help her with her somatic complaints with her withdrawal. Patient has not followed up with anyone in particular in regards to withdrawal in the past though she has been sober previously. Will have addiction medicine to see and provide additional resources for her. With the patient and her 's permission, who was in the room while she was in the emergency room, I asked her permission to speak frankly with him both. They gram that permission I told him frankly that I had significant concerns about the patient actually following through and buying into the program. Expressed to them both that this is simply not going to work if she does not buy into wanting to get help and following up to continue with that help. Did second her 's recommendation that she stay here to get sober so that she can leave a more functional life. Her demeanor seem to have changed after that where she became less distracted on the minutia of her room and more in regards to focusing on her recovery. I also reemphasized that she is can to be cured without visitors and her belongings will be locked up. She is at this time, agreeable. PLAN: Plan Anxiety: Chronic. Patient is on duloxetine as well as lorazepam. Patient had 30-day supply written on 02 January. Patient ran out of it a week ago. So the patient burned through a's 30-day supply in about 2 weeks. Patient is misusing lorazepam. Patient does have chronic opiate dependence though she has been off of her week. We will have that available as needed. I do feel that the lorazepam is a poor long-term choice in regards to treating her anxiety. Patient states that she is never seen psychiatry nor counseling. I think she would tremendously benefit from having outpatient follow-up with psychiatry. Discussed with the patient that long-term use of lorazepam is not recommended for anxiety due to physical dependence that can develop. Hypertension: Continue with amlodipine. VTE prophylaxis: Low risk. Monitor. Greater than 35 minutes of which greater than 50% of time was spent at bedside discussing the patient about alcohol treatment as well as long-term management of anxiety. Charges/Coding Visit Charges Inpatient E&M: 46820 Subs Hosp L2
[2023-01-25] MEDS: Thiamine Hydrochloride 100 MG Tablet PO (08:26)
[2023-01-25] MEDS: amLODIPine 10 MG Tablet PO (08:26)
[2023-01-25] MEDS: DULoxetine Hcl 30 MG Capsule PO (08:27)
[2023-01-25] MEDS: Multivitamins,Therapeutic Tablet 1 TABLET PO (08:27)
[2023-01-25] MEDS: Folic Acid 1 MG Tablet PO (08:27)
[2023-01-25] MEDS: LORazepam 1 MG Tablet PO ×2 (09:09→19:38)
[2023-01-25] MEDS: hydrOXYzine PAM 25 MG Capsule 50 MG PO ×2 (10:05→21:37)
[2023-01-25] MEDS: Acetaminophen 500 MG Tablet PO (14:02)
[2023-01-25] MEDS: Gabapentin 300 MG Capsule PO (19:37)
[2023-01-25] MEDS: traZODone 100 MG Tablet PO (21:37)
[2023-01-25] MEDS: MELATONIN 10 MG TABLET PO (21:37)
--- NOTE | 2023-01-26 00:43 | NURSING ---
Midnight phenobarbitol not given. Pt sleeping soundly. Patient requested Prn meds early to sleep tonight.
[2023-01-26 02:05] VITALS: BP 159/79; PULSE 63; RESP 16; TEMP 36.8; O2SAT 95
[2023-01-26] MEDS: Phenobarbital 32.4 MG Tablet 64.8 MG PO ×5 (03:58→20:15)
[2023-01-26] MEDS: LORazepam 1 MG Tablet PO (06:42)
[2023-01-26 08:00] VITALS: PULSE 62; RESP 18; O2SAT 92
[2023-01-26 08:15] VITALS: BP 112/68; PULSE 62; RESP 18; TEMP 36.6; O2SAT 92
--- NOTE | 2023-01-26 08:17 | PN.HOSP_ITS ---
Reason for Visit Reason for Visit: Diagnoses Alcohol abuse, uncomplicated (01/24/23) Subjective Subjective States is doing better but is still requesting lorazepam. Objective Data Objective Data Vital Signs: Vital Signs Temp Pulse Resp BP Pulse Ox O2 Del Method 36.8 C 62 18 159/79 H 92 Room Air 01/26/23 02:05 01/26/23 08:00 01/26/23 08:00 01/26/23 02:05 01/26/23 08:00 01/26/23 08:00 Oxygen Delivery Method Room Air Weight: 112.4 kg Body Mass Index (BMI) 43.9 Intake & Output: Intake and Output for Last 24 Hours 01/24/23 01/25/23 01/26/23 23:59 23:59 23:59 Intake Total 650 / 650 Balance 650 / 650 Lab / Micro Data 01/24/23 10:07 01/24/23 10:07 Physical Exam Const alert Constitutional Narrative: Anxious. When talking with me, does not seem engaged and focused on opening up cracker packages and drinking her water. HEENT head/scalp atraumatic Neuro Sensorium / Orientation: awake and alert Assessment & Plan Assessment/Plan (1) Alcohol abuse: PLAN: Patient abusing alcohol is what seems like a coping mechanism for her severe anxiety. Patient will have phenobarbital taper available as well as supplemental medications to help her with her somatic complaints with her withdrawal. Patient has not followed up with anyone in particular in regards to withdrawal in the past though she has been sober previously. Will have addiction medicine to see and provide additional resources for her. With the patient and her 's permission, who was in the room while she was in the emergency room, I asked her permission to speak frankly with him both. They gram that permission I told him frankly that I had significant concerns about the patient actually following through and buying into the program. Expressed to them both that this is simply not going to work if she does not buy into wanting to get help and following up to continue with that help. Did second her 's recommendation that she stay here to get sober so that she can leave a more functional life. Her demeanor seem to have changed after that where she became less distracted on the minutia of her room and more in regards to focusing on her recovery. I also reemphasized that she is can to be cured without visitors and her belongings will be locked up. She is at this time, agreeable. Patient met with addiction medicine: Patient planning to follow-up with [facility] as outpatient. PLAN: Plan Anxiety: Chronic. Patient is on duloxetine as well as lorazepam. Patient had 30-day supply written on 02 January. Patient ran out of it a week ago. So the patient burned through a's 30-day supply in about 2 weeks. Patient is misusing lorazepam. Patient does have chronic opiate dependence though she has been off of her week. We will have that available as needed. I do feel that the lorazepam is a poor long-term choice in regards to treating her anxiety. Patient states that she is never seen psychiatry nor counseling. I think she would tremendously benefit from having outpatient follow-up with psychiatry. Discussed with the patient that long-term use of lorazepam is not recommended for anxiety due to physical dependence that can develop. Today, I talked to her about the oncoming physician who will be assuming her care tomorrow may feel comfortable with prescribing any lorazepam for her given the fact that she has endorsed that she has taken more lorazepam than she was allotted. Is supposed be a month supply and she went ventured up in about 2 weeks. Her last time she had Ativan was about a week prior to arrival. She was asking for more Ativan despite what I just told her. I do not feel this patient is a good candidate for long-term lorazepam. She has already gone a week without taking lorazepam and there may have been some withdrawal with that. She has admitted to misusing lorazepam being that she took more than she was supposed to. I am going to cancel the lorazepam and she will need to follow-up with her counseling center to see if they want to continue giving her lorazepam or not. Once again, patient does need psychiatry. I am very concerned that the patient simply [facility] that [facility] would need. Hypertension: Continue with amlodipine. VTE prophylaxis: Low risk. Monitor. Greater than 35 minutes of which greater than 50% of time was spent at bedside discussing with the patient, addressing her misuse lorazepam and continued encouragement to follow-up with psychiatric services to treat her anxiety. Charges/Coding Visit Charges Inpatient E&M: 77669 Subs Hosp L2
[2023-01-26] MEDS: Multivitamins,Therapeutic Tablet 1 TABLET PO (08:33)
[2023-01-26] MEDS: Folic Acid 1 MG Tablet PO (08:33)
[2023-01-26] MEDS: Thiamine Hydrochloride 100 MG Tablet PO (08:33)
[2023-01-26] MEDS: amLODIPine 10 MG Tablet PO (09:43)
[2023-01-26] MEDS: DULoxetine Hcl 30 MG Capsule PO (09:43)
[2023-01-26] MEDS: Gabapentin 300 MG Capsule PO (12:24)
[2023-01-26] MEDS: hydrOXYzine PAM 25 MG Capsule 50 MG PO ×2 (13:15→20:15)
[2023-01-26 14:00] VITALS: BP 138/74; PULSE 68; RESP 18; TEMP 36.6; O2SAT 95
[2023-01-26 20:15] VITALS: BP 154/75; PULSE 80; RESP 18; TEMP 37.4; O2SAT 97
[2023-01-26] MEDS: traZODone 100 MG Tablet PO (22:04)
[2023-01-26] MEDS: MELATONIN 10 MG TABLET PO (22:05)
[2023-01-27] MEDS: hydrOXYzine PAM 25 MG Capsule 50 MG PO ×2 (01:57→08:11)
[2023-01-27] MEDS: Phenobarbital 32.4 MG Tablet 64.8 MG PO ×2 (01:57→08:07)
[2023-01-27] MEDS: Gabapentin 300 MG Capsule PO (01:57)
[2023-01-27 08:00] VITALS: O2SAT 96
[2023-01-27 08:03] VITALS: BP 138/87; PULSE 69; RESP 17; TEMP 36.6; O2SAT 96
[2023-01-27 08:05] VITALS: BP 138/87; PULSE 69; RESP 17; TEMP 36.6; O2SAT 96
[2023-01-27] MEDS: Multivitamins,Therapeutic Tablet 1 TABLET PO (08:07)
[2023-01-27] MEDS: Folic Acid 1 MG Tablet PO (08:07)
[2023-01-27] MEDS: DULoxetine Hcl 30 MG Capsule PO (08:08)
[2023-01-27] MEDS: Thiamine Hydrochloride 100 MG Tablet PO (08:08)
[2023-01-27] MEDS: amLODIPine 10 MG Tablet PO (08:08)
--- NOTE | 2023-01-27 09:30 | DCINST_ITS ---
Discharge Instructions Diet Discharge Diet: No restrictions Activity Discharge Activity: Return to Normal Activity Dressing / Incision Call your doctor if you observe: Fever of 101 or Higher, Shortness of breath, Dizziness, Fainting spells, Swelling in the ankles, Chest pain and Increased palpitations (irregular heartbeat) Follow Up Care Test Results: Test results from this visit will be discussed in further detail at your follow- up appointment, if applicable. Discharge Plan Admission Admit Date/Time: 01/24/23 10:32 Attending Provider: Alexys Montes Primary Care Provider: Eloise Zamora Consulting Providers: Eugene Soto Discharge Orders/Prescriptions Prescriptions: Continued duloxetine 30 mg capsule,delayed release(DR/EC) 30 mg PO DAILY amlodipine 10 MG tablet 10 mg PO DAILY multivitamin with folic acid 1 TABLET tablet 1 tab PO DAILY lorazepam 1 MG tablet 1 mg PO TID PRN (Reason: Anxiety) Rx Instructions: take half to one as needed UP TO TID trazodone 100 mg tablet 100 mg PO QHS Referrals / Follow Up: Eloise Zamora, PA [Primary Care Provider] - Disposition Disposition (needs filled in before D/C Order can be placed): Home, Self Care
--- NOTE | 2023-01-27 10:03 | PHA.DC.MR.R ---
Pharmacy [place] Med Recon[facility] Pharmacy Service has performed discharge medication reconciliation for this patient. The patient's discharge medication list was reviewed for discrepancies and discrepancies were resolved. Medications at Discharge Home Medications amlodipine 10 mg tablet 10 mg PO DAILY 03/24/14 multivitamin with folic acid 400 mcg tablet 1 tab PO DAILY 03/24/14 lorazepam 1 mg tablet 1 mg PO TID PRN Anxiety 10/15/18 duloxetine 30 mg capsule,delayed release 30 mg PO DAILY 03/14/21 trazodone 100 mg tablet 100 mg PO QHS 01/24/23
[2023-01-27 10:23] VITALS: BP 160/85; PULSE 79; RESP 18; TEMP 36.8; O2SAT 96
--- NOTE | 2023-01-27 11:45 | DS.PCM_ITS ---
Providers Date of Admission: 01/24/23 Primary Care Physician: MARIA LUZ Prasad Reason For Visit: ALCOHOL DETOX Diagnosis Discharge Diagnosis (1) Alcohol abuse: Status: Acute Code(s): F10.10 - Alcohol abuse, uncomplicated Medications at Discharge Home Medications amlodipine 10 mg tablet 10 mg PO DAILY 03/24/14 multivitamin with folic acid 400 mcg tablet 1 tab PO DAILY 03/24/14 lorazepam 1 mg tablet 1 mg PO TID PRN Anxiety 10/15/18 duloxetine 30 mg capsule,delayed release 30 mg PO DAILY 03/14/21 trazodone 100 mg tablet 100 mg PO QHS 01/24/23 Hospital Course Operations None Procedures None Summary of Care Provided Minutes Spent on Discharge: 32 Hospital Course: Per HPI: MARC SARABIA, is a 57 F who presents reluctantly seeking treatment for alcohol withdrawal. Patient was brought here by her as patient has been consuming copious amounts of alcohol over the past week. Patient has issues with anxiety that may be stemming from the severe illness that her son is currently experiencing and so she has been on chronic lorazepam and recently ran out about a week ago. Patient was prescribed #60 of lorazepam on January 02. Supposed be a 30-day supply but she exhausted it within roughly 2 weeks of re ceiving it. Patient has also been supplementing that with alcohol. Patient has had his has a history of severe alcohol abuse and had been sober for period of time but has recently resumed drinking heavily. Patient's last drink was around 5 AM. When I walked into the room, patient was focused on but all details such as my name, looking my badge, and wondering what the issue teleneurology camera that was spying on her, it asking about drinking water and wonder what her alcohol level is. Hospital Course: 1. Alcohol withdrawal/anxiety/depression?57-year-old female with history of chronic alcohol abuse presented to the hospital requesting detox. She has significant anxiety leading to her drinking especially with lack of coping mechanisms. She completed 3 days of the alcohol detox program and met with [facility]. She requested follow-up as an outpatient and she was provided with numbers. I discussed with her the plan for discharge today she expressed understanding the risk benefits going home and would like to go home today. She will not be given any prescriptions on discharge as she takes Ativan at home which can lead to significant abuse given her alcohol use disorder. She expressed understanding of the risk benefits going home and would like to go home today. Physical Exam Narrative General: Alert, Oriented x3, Cooperative, No apparent distress HEENT: Atraumatic, PERRLA, EOMI, Normocephalic Oral: Moist Mucosa Neck: Supple, No JVD Lungs: Clear to auscultation, Normal air movement, No rhonchi, No wheeze, No rales Cardiovascular: Regular rate, Regular Rhythm, Normal S1, Normal S2, No murmurs Abdomen: Soft, Non Tender, Non-Distended, No Hepato-splenomegaly Extremities: No edema, Capillary Refill Less than 3 Seconds Skin: No rashes, No breakdown Musculoskeletal: No Tenderness to Palpation of Joints or Extremities Neurological: Cranial nerves II-XII grossly intact, Motor Exam 5/5 strength throughout, Sensory exam intact to light touch and pain Psych/Mental Status: Normal Affect, Appropriate Weight / BMI Weight Weight: 247 lb 12.8 oz Body Mass Index (BMI) 43.9 ABG / Lab / Microbiology Data 01/24/23 10:07 01/24/23 10:07 D/C Instructions Discharge Diet: No restrictions Call your doctor if you observe: Fever of 101 or Higher, Shortness of breath, Dizziness, Fainting spells, Swelling in the ankles, Chest pain and Increased palpitations (irregular heartbeat) Meaningful Use Info Meaningful Use Diagnoses (Choose all that apply): None applicable Discharge Plan Admission Admit Date/Time: 01/24/23 10:32 Attending Provider: Alexys Montes Primary Care Provider: Eloise Zamora Consulting Providers: Eugene Soto Discharge Orders/Prescriptions Prescriptions: Continued duloxetine 30 mg capsule,delayed release(DR/EC) 30 mg PO DAILY amlodipine 10 MG tablet 10 mg PO DAILY multivitamin with folic acid 1 TABLET tablet 1 tab PO DAILY lorazepam 1 MG tablet 1 mg PO TID PRN (Reason: Anxiety) Rx Instructions: take half to one as needed UP TO TID trazodone 100 mg tablet 100 mg PO QHS Referrals / Follow Up: Eloise Zamora PA [Primary Care Provider] - Disposition Disposition (needs filled in before D/C Order can be placed): Home, Self Care Charges/Coding Visit Charges Inpatient E&M: 67693 Disch Hosp >30min
--- NOTE | 2023-01-27 12:12 | CASEMGMT ---
Social Work SW met with pt and introduced self and role of SW. Pt confirms she does not have medical insurance. SW provided pt with written information on Medicaid application process, prescription assistance, Katelynn Marte, [employer] and [facility]. Pt declines any needs at this time or questions about information. FIOR Pearson
--- NOTE | 2023-01-27 13:31 | CASEMGMT ---
Social Work SW met with pt to discuss advance directives.? Pt confirms she has completed a living will and health care POA naming her spouse Husam West.? Pt notified that documents are not on file at [facility] and SW requested they be brought in for scanning into the EMR.? FIOR Pearson
--- NOTE | 2023-01-27 16:56 | CHAPLAIN ---
Type of Pastoral Visit _x__ Initial Visit ___ Follow-up Visit ___ On-call Visit ___ General Patient Visit ___ Spiritual Assessment ___ Family Conference ___ Bereavement ___ Rapid Response ___ Code Blue ___ Other (describe below) Pastoral Care Referral From _x__ Patient ___ Family ___ Nurse ___ Physician ___ Corporate Compliance Manager ___ Medical Record Clerk ___ Other (describe below) Sacrament/Intervention _x__ Active listening ___ Anointing ___ Gnosticist ___ Bereavement ___ Communion _x__ Diane exploration ___ _x__ Life review _x__ Prayer ___ Reconciliation ___ Sacrament of Sick _x__ Supportive presence ___ Wedding ___ Other (describe below) Pastoral Comments patient had made request during the weekend for spiritual care support; this gantry crane operator was able to see the patient before she was discharged today; pt identifies self as a believer but being overwhelmed with her family problems including a son with many health needs and a that just works all the time to escape it; pt is clearly focused on her feelings of being ashamed and scared; took time with patient to have her express these feelings and how to work through this experience through acceptance, support of others, spiritual nurture, and the resources that have been given to her; pt also seeks prayer for these specific needs and then gives more details about them and her concerns; time, listening, support, processing, and prayer given
== END 2023-01-27 13:40 | disposition home or self-care (01) | DRG 897 ==
LOC: ED 10:26 → MS3 10:43
PROVIDERS: Emergency Provider Emergency Medicine; PCP Physician Assistant; Visit Provider Family Medicine
DX: F10.10 Alcohol abuse, uncomplicated (principal); F41.9 Anxiety disorder, unspecified; I10 Essential (primary) hypertension; Z79.899 Other long term (current) drug therapy; Y90.6 Blood alcohol level of 120-199 mg/100 ml
CPT/HCPCS: 80053; 80307; 82077; 85025; 93005; A4216

== ENCOUNTER 2024-01-21 10:14 | Inpatient (IN) | payer OTHER, SELFPAY ==
[2024-01-21] VITALS (7 sets, daily range): BP systolic 104–148; BP diastolic 40–68; PULSE 61–121; RESP 14–22; TEMP 36.5–37.2; O2SAT 96–99; BMI 42.6
[2024-01-21] MEDS: LORazepam 2 MG/ML Syringe 1 MG IV (10:40)
[2024-01-21 10:42] LABS: Absolute Lymphocyte Count 1.29 X10^3/uL (0.83-4.51); Absolute Neutrophil Count 7.3 X10^3/uL (2.0-7.7); Basophil# 0.04 X10^3/uL; Basophil% 0.4 % (0-1); Eosinophil# 0.01 X10^3/uL; Eosinophils% 0.1 % (0-5); Hematocrit 43.2 % (37-47); Hemoglobin 14.6 g/dL (12.0-15.0); Lymphocyte # 1.29 X10^3/ul (0.83-4.51); Mean Corp Hgb Conc 33.8 g/dL (32-36); Mean Corpuscular Volume 88.7 fL (81-99); Mean Platelet Vol. 9.6 fl (6.2-12.0); Monocyte# 0.54 X10^3/uL; Monocyte% 5.8 % (0-10); NRBC Flagged by Analyzer 0 % (0-5); Neutrophil # 7.33 X10^3/uL (2.7-7.7); Neutrophil % 79.4 % (47-70); Platelet Count 312 K/mm3 (150-450); RBC Distribution Width CV 12.6 % (11.6-14.6); RBC Distribution Width SD 40.3 fl (35.1-43.9); Red Blood Count 4.87 M/mm3 (4.2-5.4); White Blood Count 9.2 K/mm3 (4.4-11.0)
[2024-01-21 10:59] LABS: ALB/GLOB Ratio 1.1 RATIO (0.9-2.4); AST(SGOT) 16 U/L (15-37); Alanine Aminotransfer ALT/SGPT 32 U/L (13-56); Albumin, Serum 3.8 g/dL (3.2-5.0); Alkaline Phosphatase 98 U/L (45-117); Anion Gap 8 (5-15); BUN 11 mg/dL (7-18); BUN/Creat Ratio 12.9 RATIO (10-20); Chloride 106 mmol/L (98-107); Creatinine, Serum 0.85 mg/dL (0.55-1.02); EST Glomerular Filtration Rate 73 mL/min (>60); Est Glom Filt Rate - Afr Amer 88 mL/min (>60); Estimated Creatinine Clearance 85.52 ml/min; Globulin 3.5 g/dL (2.2-4.2); Glucose 110 mg/dL (74-106); Potassium 3.7 mmol/L (3.5-5.1); Protein, Total 7.3 g/dL (6.4-8.2); Sodium Level 138 mmol/L (136-145)
[2024-01-21 11:03] LABS: Alcohol, Blood (Medical)-Serum < 3.0 mg/dL
[2024-01-21 11:07] LABS: Amphetamine Urine VISTA NEGATIVE (<1000 ng/mL); Barbiturate Urine VISTA NEGATIVE (< 200 ng/mL); Benzodiazepine Urine VISTA NEGATIVE (< 200 ng/mL); Cocaine Urine VISTA NEGATIVE (< 300 ng/mL); Ecstacy Urine VISTA NEGATIVE (< 500 ng/mL); Methadone Urine VISTA NEGATIVE (< 300 ng/mL); PCP Urine VISTA NEGATIVE (< 25 ng/mL); THC Urine VISTA NEGATIVE (< 50 ng/mL); Vista UDS pH Range 5
[2024-01-21] MEDS: Phenobarbital 32.4 MG Tablet 97.2 MG PO ×3 (12:56→20:58)
[2024-01-21] MEDS: hydrOXYzine PAM 25 MG Capsule 50 MG PO (12:56)
[2024-01-21] MEDS: LORazepam 1 MG Tablet 2 MG PO (13:44)
[2024-01-21] MEDS: Acetaminophen 500 MG Tablet PO (17:09)
[2024-01-21] MEDS: 0.9% Saline Lock 10 ML Syringe IV (20:58)
[2024-01-21] MEDS: traZODone 100 MG Tablet PO (22:31)
[2024-01-22 00:42] VITALS: BP 124/60; PULSE 61; RESP 16; TEMP 36.7; O2SAT 98
[2024-01-22] MEDS: Phenobarbital 32.4 MG Tablet 97.2 MG PO ×4 (00:45→13:09)
[2024-01-22 05:23] VITALS: BP 133/69; PULSE 53; RESP 14; TEMP 36.6; O2SAT 92
[2024-01-22 08:14] VITALS: BP 120/59; PULSE 61; RESP 18; TEMP 36.8; O2SAT 96
[2024-01-22] MEDS: DULoxetine Hcl 30 MG Capsule PO (08:16)
[2024-01-22] MEDS: Folic Acid 1 MG Tablet PO (08:16)
[2024-01-22] MEDS: Thiamine Hydrochloride 100 MG Tablet PO (08:16)
[2024-01-22] MEDS: amLODIPine 10 MG Tablet PO (08:16)
[2024-01-22] MEDS: Ibuprofen 600 MG Tablet PO (08:19)
[2024-01-22] MEDS: Ondansetron 8 MG Tablet PO (10:10)
[2024-01-22] MEDS: Gabapentin 300 MG Capsule PO (10:10)
[2024-01-22] MEDS: LORazepam 1 MG Tablet 2 MG PO (10:13)
[2024-01-22 17:19] VITALS: BP 100/45; PULSE 65; RESP 18; TEMP 36.6; O2SAT 95
[2024-01-22 20:22] VITALS: BP 124/56; PULSE 61; RESP 18; TEMP 37; O2SAT 96
[2024-01-22] MEDS: Phenobarbital 32.4 MG Tablet 64.8 MG PO (20:26)
[2024-01-22] MEDS: traZODone 100 MG Tablet PO (21:18)
[2024-01-22] MEDS: hydrOXYzine PAM 25 MG Capsule 50 MG PO (21:18)
[2024-01-23] MEDS: Phenobarbital 32.4 MG Tablet 64.8 MG PO ×4 (00:12→18:02)
[2024-01-23 02:41] VITALS: BP 126/69; PULSE 71; RESP 18; TEMP 36.8; O2SAT 96
[2024-01-23] MEDS: Folic Acid 1 MG Tablet PO (08:27)
[2024-01-23] MEDS: Thiamine Hydrochloride 100 MG Tablet PO (08:27)
[2024-01-23] MEDS: Gabapentin 300 MG Capsule PO ×2 (08:27→19:32)
[2024-01-23] MEDS: DULoxetine Hcl 30 MG Capsule PO (08:27)
[2024-01-23] MEDS: amLODIPine 10 MG Tablet PO (08:27)
[2024-01-23 08:28] VITALS: BP 139/68; PULSE 72; RESP 18; TEMP 37.1; O2SAT 97
[2024-01-23] MEDS: LORazepam 1 MG Tablet PO ×2 (10:20→19:32)
[2024-01-23] MEDS: Paroxetine 20 MG Tablet PO (11:12)
[2024-01-23] MEDS: busPIRone 15 MG TABLET PO ×2 (13:06→19:29)
[2024-01-23 17:56] VITALS: BP 114/58; PULSE 73; RESP 16; TEMP 36.6; O2SAT 97
[2024-01-23] MEDS: traZODone 100 MG Tablet PO (19:29)
[2024-01-23 20:14] VITALS: BP 128/60; PULSE 69; RESP 16; TEMP 36.9; O2SAT 95
[2024-01-24] MEDS: Phenobarbital 32.4 MG Tablet 64.8 MG PO ×3 (00:04→12:43)
[2024-01-24 00:24] VITALS: BP 128/76; PULSE 71; RESP 16; TEMP 36.7; O2SAT 97
[2024-01-24] MEDS: busPIRone 15 MG TABLET PO ×2 (05:45→14:01)
[2024-01-24 05:50] VITALS: BP 128/58; PULSE 59; RESP 16; TEMP 36.5; O2SAT 94
[2024-01-24] MEDS: Thiamine Hydrochloride 100 MG Tablet PO (07:55)
[2024-01-24] MEDS: amLODIPine 10 MG Tablet PO (07:55)
[2024-01-24] MEDS: Folic Acid 1 MG Tablet PO (07:56)
[2024-01-24] MEDS: Paroxetine 20 MG Tablet PO (07:56)
[2024-01-24 08:20] VITALS: BP 132/70; PULSE 78; RESP 16; TEMP 37.1; O2SAT 98
[2024-01-24] MEDS: LORazepam 1 MG Tablet PO (09:59)
[2024-01-24 14:02] VITALS: BP 137/76; PULSE 75; RESP 18; TEMP 36.9; O2SAT 98
== END 2024-01-24 14:10 | disposition home or self-care (01) | DRG 897 ==
LOC: ED 11:25 → MS3 16:58
PROVIDERS: Admitting Provider Internal Medicine; Emergency Provider Emergency Medicine; PCP Physician Assistant; Visit Provider Internal Medicine
DX: F10.939 Alcohol use, unspecified with withdrawal, unspecified (principal); R45.851 Suicidal ideations; Z68.41 Body mass index [BMI] 40.0-44.9, adult; F32.A Depression, unspecified; I10 Essential (primary) hypertension; E66.01 Morbid (severe) obesity due to excess calories; E78.5 Hyperlipidemia, unspecified; F41.9 Anxiety disorder, unspecified; Z79.51 Long term (current) use of inhaled steroids; Z79.899 Other long term (current) drug therapy; Y90.0 Blood alcohol level of less than 20 mg/100 ml
CPT/HCPCS: 80053; 80307; 82077; 85025; 99283; A4216

== ENCOUNTER → 2024-04-21 | Outpatient (CLI) | payer SELFPAY ==
--- NOTE | 2024-04-21 08:00 | FLU_PTH ---
PATIENT: MARC SARABIA LOC: [facility] U#:[id number] AGE/SX: 58/F ROOM: RE04/21/[address]: Dr. Geovani Cabezas MD : 1965 BED: DIS: 04/21/2024 SPEC #: [id number] RECD: 04/21/24 10:39 STATUS: JERRELL KORIN #: [id number] MORIS: 04/21/24 08:[address]: Geovani Cabezas DEPT: CYTOLOGY RECD BY: Jenny Rico ENTERED: 04/21/24 11:48 SP TYPE: Fluid OTHR DR: MARIA LUZ Prasad Tissues: A - Thyroid gland, NOS B - Thyroid gland, NOS C - Thyroid gland, NOS D - Thyroid gland, NOS Procedures: Special Stain Group II Surgery Specimen Level IV Cytospin Fluid Cytology Other HEADER OPERATION: Fine needle aspiration of thyroid nodule PRE-OP DIAGNOSIS: Thyroid nodule TISSUE SUBMITTED: A- Left thyroid nodule fluid, B- Left thyroid nodule slides, C- Right thyroid nodule fluid, D- Right thyroid nodule slides DIAGNOSIS CYTOLOGY A. Left thyroid nodule fluid, fine needle aspiration (cytospin and cellblock): Negative for malignant cells. See comment. B. Left thyroid nodule, fine needle aspiration (smears): Consistent with benign colloid nodule, [place] Category II. Adequate for evaluation. C. Right thyroid nodule fluid, fine needle aspiration (cytospins and cellblock): Negative for malignant cells. See comment. D. Right thyroid nodule, fine needle aspiration (smears): Consistent with benign colloid nodule, [place] Category II. Adequate for evaluation. See comment. 04/22/2024 COMMENT A. The specimen consists of small amount of colloid, a few clusters of benign follicular cells and a few macrophages. C. The specimen consists of a few clusters of benign follicular cells and rare macrophages. Correlation with clinical, radiologic findings and appropriate follow up are necessary. The [place] System for thyroid diagnostic categorization was used in the evaluation of this case. CYTOLOGY STUDY Slides are reviewed. CYTOLOGY GROSS A. Received is 30 ml of red fluid labeled with the patient's name and and designated per the requisition as Left thyroid nodule. Submitted for cytology preparation including cell block. B. Received are 4 smears labeled with the patient's name and designated per the requisition as Left thyroid nodule. Submitted for staining. C. Received is 30 ml of red fluid labeled with the patient's name and and designated per the requisition as Right thyroid nodule. Submitted for cytology preparation including cell block. D. Received are 4 smears labeled with the patient's name and designated per the requisition as Right thyroid nodule. Submitted for staining. Mr 04/21/2024 TC:5 CPT: 08629b8,79563b7 ADDENDUM ADDENDUM ADDENDUM ADDENDUM ADDENDUM ADDENDUM ADDENDUM ADDENDUM ADDENDUM ADDENDUM ADDENDUM ADDENDUM ADDENDUM ADDENDUM ADDENDUM ADDENDUM ADDENDUM ADDENDUM ADDENDUM ADDENDUM 05/19/2024 12:49 ADDENDUM 05/19/2024 12:49 ADDENDUM 05/19/2024 12:49 ADDENDUM 05/19/2024 12:49 ADDENDUM 05/19/2024 12:49 This addendum is added to incorporate an outside pathology consultation report. The case was examined at [facility] (#[id number]) and the following diagnosis was rendered. A. Left thyroid nodule fluid fine needle aspiration, 4 outside slides [id number] Benign. Consistent with colloid nodule. B. Left thyroid nodule fluid fine needle aspiration, 4 outside slides [id number] Benign. Consistent with colloid nodule. C. Right thyroid nodule fluid fine needle aspiration, 4 outside slides [id number] Benign. Consistent with colloid nodule. D. Right thyroid nodule fluid fine needle aspiration, 4 outside slides [id number] Benign. Consistent with colloid nodule. Please see complete above mentioned consultation report in EMR
== END | disposition home or self-care (01) ==
PROVIDERS: PCP Physician Assistant; Referring Provider Surgery; Visit Provider Surgery
DX: E04.1 Nontoxic single thyroid nodule (principal)
CPT/HCPCS: 88108; 88161; 88305; 88313